=== PATIENT | female | born 1995 | race African-American/Black ===

== ENCOUNTER 2023-07-23 11:38 | Emergency (ER) | payer SELFPAY ==
[2023-07-23] MEDS ORDERED: Fluorescein Opthalmic Strip ONE (11:58)
[2023-07-23] MEDS ORDERED: Lactated Ringer's 1,000 ML ONE (11:58)
[2023-07-23] MEDS ORDERED: Ketorolac Tromethamine 30 MG/ML VIAL ONE (11:58)
[2023-07-23] MEDS ORDERED: Tetracaine 0.5% PF 4 ML BOT ONE (11:58)
[2023-07-23 12:53] LABS: Pregnancy Test - Urine (BHCG) Negative (Negative); Pregu Control Background? CLEAR/WHITE (CLR/WHITE); Pregu Control Bar Appear? YES (CONTROL BAR); Specific Gravity 1.005 (1.002-1.036)
[2023-07-23] MEDS ORDERED: Acetaminophen 500 MG TAB ONE (13:07)
[2023-07-23] MEDS ORDERED: methylPREDNISolone Sod Succ/PF 125 MG/2 ML VIAL ONE (13:07)
== END 2023-07-23 13:27 | disposition home or self-care (01) ==
LOC: MADERS 11:38
DX: R51.9 Headache, unspecified (principal)
CPT/HCPCS: 36416; 70450; 81025; 93005; 96374; 96375; J1885; J2930; J7120